=== PATIENT | female | born 1990 | race Caucasian/White ===

== ENCOUNTER 2020-07-08 10:54 | Inpatient (IN) | payer OTHER ==
[~2020-07-08] VITALS: Ht 165.1 cm; Wt 108.0 kg
[~2020-07-08 10:54] MED LIST: PRENATAL TABLET1 TA1 PO; TYLENOL-CODEINE1 TAB PO
== END 2020-07-10 13:11 | DRG 807 ==
LOC: LDR 10:54 → SURG-SUITE 15:44
PROVIDERS: ADMIT Obstetrics & Gynecology; ATTEND Obstetrics & Gynecology
PROC: 10E0XZZ Delivery of Products of Conception, External Approach (ICD-10-PCS; principal; 2020-07-08)
PROC: 0KQM0ZZ Repair Perineum Muscle, Open Approach (ICD-10-PCS; 2020-07-08)
PROC: 4A1HXFZ Monitoring of Products of Conception, Cardiac Rhythm, External Approach (ICD-10-PCS; 2020-07-08)
DX: O70.1 Second degree perineal laceration during delivery (principal); Z37.0 Single live birth; O99.824 Streptococcus B carrier state complicating childbirth; Z3A.37 37 weeks gestation of pregnancy; Z20.828 Contact with and (suspected) exposure to other viral communicable diseases

== ENCOUNTER 2020-08-09 23:07 | Emergency (ER) | payer OTHER ==
[~2020-08-09] VITALS: Ht 165.1 cm; Wt 95.3 kg
[2020-08-10] MEDS ORDERED: ZITHROMAX500 MG PO (02:38)
[2020-08-10] MEDS ORDERED: ORASEP SPRAY30 ML MM (02:38)
== END 2020-08-10 02:41 ==
LOC: ER 23:07
DX: R50.9 Fever, unspecified (principal); J06.9 Acute upper respiratory infection, unspecified; Z20.822 Contact with and (suspected) exposure to COVID-19

== ENCOUNTER 2022-03-21 18:08 | Inpatient (IN) | payer OTHER ==
[~2022-03-21] VITALS: Ht 165.1 cm; Wt 109.3 kg
[~2022-03-21 18:08] MED LIST changes: +ORASEP SPRAY30 ML MM; +ZITHROMAX500 MG PO
[2022-03-21] MEDS ORDERED: PRENATAL TABLE1 EAC3 PO (23:26)
== END 2022-03-26 13:02 | disposition home or self-care (01) | DRG 805 ==
LOC: OB/GYN 18:08 → LDR 18:08 → OB/GYN 03-22 13:31 → LDR 03-24 07:28 → OB/GYN 03-24 12:28
PROVIDERS: ADMIT Student in an Organized Health Care Education/Training Program; ATTEND Student in an Organized Health Care Education/Training Program
PROC: 4A1HXCZ Monitoring of Products of Conception, Cardiac Rate, External Approach (ICD-10-PCS; 2022-03-21)
PROC: 10E0XZZ Delivery of Products of Conception, External Approach (ICD-10-PCS; principal; 2022-03-24)
PROC: 0KQM0ZZ Repair Perineum Muscle, Open Approach (ICD-10-PCS; 2022-03-24)
DX: O70.1 Second degree perineal laceration during delivery (principal); O60.14X0 Preterm labor third trimester with preterm delivery third trimester, not applicable or unspecified; O13.4 Gestational [pregnancy-induced] hypertension without significant proteinuria, complicating childbirth; O99.820 Streptococcus B carrier state complicating pregnancy; Z37.0 Single live birth; Z3A.36 36 weeks gestation of pregnancy; Z20.822 Contact with and (suspected) exposure to COVID-19